=== PATIENT | female | born 1985 ===

== ENCOUNTER 2021-10-04 00:56 | Emergency (ER) | payer MEDICAID | END 2021-10-04 01:00 | disposition left against medical advice (07) | LOC: ED 00:56 | DX: O26.899 Other specified pregnancy related conditions, unspecified trimester (principal); R25.2 Cramp and spasm; Z53.21 Procedure and treatment not carried out due to patient leaving prior to being seen by health care provider; Z3A.00 Weeks of gestation of pregnancy not specified ==